=== PATIENT | male | born 1980 | race American Indian/Alaskan Native ===

== ENCOUNTER 2016-10-26 17:23 | Emergency (ER) | payer SELFPAY ==
[2016-10-26] MEDS ORDERED: AUGMENTIN 875 MG PO ONE (21:54)
[2016-10-26] MEDS ORDERED: RABAVERT RABIES VACCINE(PCEC) IM ONE (21:54)
[2016-10-26] MEDS ORDERED: BOOSTRIX IM ONE (21:54)
--- NOTE | 2016-10-26 22:08 | Emergency Department Report ---
HPI - General Chief Complaint: Animal Bite Time Seen by Provider: 10/26/16 21:12 - HPI HPI: 36-year-old male presents to ED complaining of dog bite to the right hand. Patient states the bite happened yesterday. Patient says he did not come in yesterday because he thought he would be alright but today he saw some minimal swelling on his right hand. Patient states he recently just acquired from a friend about a month ago. Patient's states he is unsure about the dog's vaccination but he is friend told him that the dog was vaccinated up until about 6 months. Patient denies fevers/chills/nausea/vomiting/abdominal pain/chest pain/ shortness of breath or problem ED Past Medical Hx - Past Medical History Previous Medical History?: No - Surgical History Past Surgical History?: No - Social History Smoking Status: Current Every Day Smoker Substance Use Type: Alcohol - Medications Home Medications: Home Medications Medication Instructions Recorded Confirmed Last Taken Type Amoxicillin/K Clav Tab [Augmentin 1 each PO BID #12 tablet 10/26/16 Unknown Rx 875MG TAB] Ibuprofen [Motrin] 800 mg PO Q8HR PRN #30 tablet 10/26/16 Unknown Rx Rabies Vaccine (Pcec)/Pf [Rabavert 2.5 unit IM .ONCE #1 unit 10/26/16 Unknown Rx Rabies Vaccine(Pcec)] ED Review of Systems ROS: Stated complaint: DOG BITE Other details as noted in HPI Constitutional: denies: chills, fever Eyes: denies: eye pain, eye discharge, vision change ENT: denies: ear pain, throat pain Respiratory: denies: cough, shortness of breath, wheezing Cardiovascular: denies: chest pain, palpitations Endocrine: no symptoms reported Gastrointestinal: denies: abdominal pain, nausea, diarrhea Genitourinary: denies: urgency, dysuria Musculoskeletal: denies: back pain, joint swelling, arthralgia Skin: denies: rash, lesions, change in color, pruritus Neurological: denies: headache, weakness, paresthesias Psychiatric: denies: anxiety, depression Hematological/Lymphatic: denies: easy bleeding, easy bruising Physical Exam - Physical Exam Vital Signs: Vital Signs 10/26/16 17:52 Temperature 98.8 F Pulse Rate 88 Respiratory 16 Rate Blood Pressure 153/98 O2 Sat by Pulse 100 Oximetry Physical Exam: GENERAL: Alert and oriented x3, no apparent distress, Normal Gait, atraumatic. HEAD: Head is normocephalic and a-traumatic. EYES: Extra ocular muscles are intact. Pupils are equal, round, and reactive to light and accommodation. MOUTH:Mouth is well hydrated and without lesion. Patent airways. NECK: Supple. Non edematous, No carotid bruits. No lymphadenopathy or thyromegaly. No C-spine tenderness LUNGS: Symetrical with respiration, No wheezing, no rales or crackles, CTAB. HEART: S1, S2 present, regular rate and rhythm without murmur, no rubs, no gallops EXTREMITIES/MUSCULOSKELETAL: No cyanosis, clubbing, rash, lesions or edema. Full ROM bilaterally. UE/LE Pulses 2+ bilaterally. LE and UE 5+ strength bilaterally, straight leg raise negative bilaterally NEUROLOGIC: No focal Deficit, Cranial nerves II through XII are grossly intact. No loss of sensation, SKIN: Warm and dry, 3 bite bonds located on left hand one located on on upper arm. Wound is closed, non-bloody, mild erythematous on the right and posterior hand No lesions, No ulceration or induration present. ED Course Vital Signs 10/26/16 17:52 Temperature 98.8 F Pulse Rate 88 Respiratory 16 Rate Blood Pressure 153/98 O2 Sat by Pulse 100 Oximetry ED Medical Decision Making - Medical Decision Making 36-year-old male presents with a dog bite to the hand and on. ED course: Patient received a dose of Augmentin and tetanus booster. Patient unable to receive his rabies vaccination due to pharmacy out of stock of the rabies vaccination. Discussed the patient that I will be given him rabies prescription to go to another pharmacy to pick it up and return to the ED or any other clinic to have it administered. Discussed safe unable to get prescription from the pharmacy to go to the local health department as referred to get vaccinated. Patient states he understands instructions given. Patient is in no acute or respiratory distress. Patient's vital signs are normal. Discussed follow-up with primary care physician 3-5 days Critical care attestation.: If time is entered above; I have spent that time in minutes in the direct care of this critically ill patient, excluding procedure time. ED Disposition Clinical Impression: Animal bite of forearm Qualifiers: Encounter type: initial encounter Laterality: right Qualified Code(s): S51.851A - Open bite of right forearm, initial encounter Dog bite Qualifiers: Encounter type: initial encounter Qualified Code(s): W54.0XXA - Bitten by dog, initial encounter Disposition: DISCHARGED TO HOME OR SELFCARE Is pt being admited?: No Does the pt Need Aspirin: No Condition: Stable Instructions: Animal Bite (ED) Additional Instructions: Go and slate picker your rabies vaccine from the pharmacy and return to ED to get it administered or return to her primary care physician to have it administered Following instructions as given If new symptoms arise or symptoms get worse return to the nearest ED Prescriptions: Amoxicillin/K Clav Tab [Augmentin 875MG TAB] 1 each PO BID #12 tablet Ibuprofen [Motrin] 800 mg PO Q8HR PRN #30 tablet PRN Reason: Pain Rabies Vaccine (Pcec)/Pf [Rabavert Rabies Vaccine(Pcec)] 2.5 unit IM .ONCE #1 unit Referrals: PRIMARY CAREMD [Primary Care Provider] - 3-5 Days JOSSELYN PARIKH MD [Referring] - 3-5 Days [facility] [Outside] - 3-5 Days [facility] [Outside] - 3-5 Days [facility] [Outside] - 3-[address] [facility] [Outside] - 3-5 Days Forms: Work/School Release Form(ED) Time of Disposition: 22:27
[2016-10-26 22:55] VITALS: BP 132/78
== END 2016-10-26 23:09 | disposition home or self-care (01) ==
LOC: ED 17:23
DX: S51.851A Open bite of right forearm, initial encounter (principal); F17.200 Nicotine dependence, unspecified, uncomplicated; W54.0XXA Bitten by dog, initial encounter; Y93.89 Activity, other specified; Y99.9 Unspecified external cause status; Y92.89 Other specified places as the place of occurrence of the external cause
CPT/HCPCS: 90471; 90715

== ENCOUNTER 2018-01-25 22:20 | Emergency (ER) | payer OTHER ==
[2018-01-25] MEDS ORDERED: NORCO 5/325 PO ONE (23:11)
--- NOTE | 2018-01-25 23:33 | XRay Report ---
FINAL REPORT EXAM: XR HAND 3+V RT HISTORY: "cut rt. hand on glass" TECHNIQUE: Four views right hand PRIORS: None. FINDINGS: No fracture is identified. No dislocation seen. Joint spaces are within normal limits. No erosive bony change identified. Carpal bones maintain normal alignment. Distal radius and ulna are intact. No radiopaque foreign bodies seen. IMPRESSION: Negative hand series
[2018-01-26] MEDS ORDERED: XYLOCAINE 1% 20 mL INFILTRATI ONE (01:21)
[2018-01-26] MEDS ORDERED: MOTRIN PO ONE ×2 (01:22→01:23)
[2018-01-26] MEDS ORDERED: BOOSTRIX IM ONE (01:23)
--- NOTE | 2018-01-26 03:25 | Emergency Department Report ---
ED Laceration HPI - HPI Chief Complaint: Wound/Laceration Stated Complaint: LAC TO RT HAND Time Seen by Provider: 01/26/18 03:16 Occurred When: Yesterday (evening) Severity: moderate Tetanus Status: Not up to Date Laceration Symptoms: Yes Pain, No Foreign Body Sensation, No Numbness, No Weakness Other History: History 7-year-old -[place] male reports that he cut his hand on glass around 5 PM Wednesday night while washing dishes. Patient reports he was bandaged and Neosporin applied by patient prior to arrival. Patient gets to the triage room there is no active bleeding noted through the bandage. Patient reports he is not up-to-date on his tetanus shot. Patient denies any other medical problems at this time. ED Review of Systems ROS: Stated complaint: LAC TO RT HAND Other details as noted in HPI Comment: All other systems reviewed and negative Musculoskeletal: denies: back pain, joint swelling, arthralgia Skin: other (cut to right hand lateral) ED Past Medical Hx - Past Medical History Previous Medical History?: No - Surgical History Past Surgical History?: No - Social History Smoking Status: Current Every Day Smoker Substance Use Type: None - Medications Home Medications: Home Medications Medication Instructions Recorded Confirmed Last Taken Type Rabies Vaccine (Pcec)/Pf [Rabavert 2.5 unit IM .ONCE #1 unit 10/26/16 Unknown Rx Rabies Vaccine(Pcec)] Amoxicillin/K Clav Tab [Augmentin 1 each PO BID #14 tablet 01/26/18 Unknown Rx 875MG TAB] Ibuprofen [Motrin 800 MG tab] 800 mg PO Q8HR PRN #30 tablet 01/26/18 Unknown Rx Laceration Physical Exam - Exam General: Vital signs noted. No distress. Alert and acting appropriately. Wound Length (cm): 2 (linear laceration to the right hand lateral) Laceration Location: Upper Extremity (right hand lateral) Laceration Exam: Yes Normal Distal CMS, No Foreign Body, No Exposed Tendon, Vessel, or Nerve, No Tendon Injury ED Course Vital Signs 01/25/18 01/25/18 23:03 23:14 Temperature 98.7 F Pulse Rate 96 H Respiratory 18 18 Rate Blood Pressure 190/97 O2 Sat by Pulse 98 Oximetry - Laceration /Wound Repair Upper Hand Wound Location: upper extremity (right hand) Wound Length (cm): 2 Wound's Depth, Shape: into muscle, linear Wound Explored: clean Irrigated w/ Saline (ccs): 500 Betadine Prep?: Yes Anesthesia: 1% Lidocaine Volume Anesthetic (ccs): 3 Wound Debrided: minimal Wound Repaired With: sutures Suture Size/Type: 4:0, proline Number of Sutures: 3 Layer Closure?: No Sterile Dressing Applied?: Yes Progress: Patient tolerated procedure well ED Medical Decision Making - Medical Decision Making Patient has been evaluated by this provider fast track. Pain medication was given for pain control. Laceration repair. Discharge patient on ibuprofen. Patient to return in 7-10 days for suture removal. Discussed the patient to keep area clean and dry. Critical care attestation.: If time is entered above; I have spent that time in minutes in the direct care of this critically ill patient, excluding procedure time. ED Disposition Clinical Impression: Laceration of hand Qualifiers: Encounter type: initial encounter Foreign body presence: with foreign body Laterality: right Qualified Code(s): S61.421A - Laceration with foreign body of right hand, initial encounter Disposition: TO HOME OR SELFCARE Is pt being admited?: No Does the pt Need Aspirin: No Condition: Stable Instructions: Suture Care (ED), Laceration (ED) Additional Instructions: Please complete antibiotics as prescribed. Please return back to the emergency room for suture removal in 7-10 days. Please keep the area clean and dry. Please wear a glove while cooking washing dishes. Prescriptions: Amoxicillin/K Clav Tab [Augmentin 875MG TAB] 1 each PO BID #14 tablet Ibuprofen [Motrin 800 MG tab] 800 mg PO Q8HR PRN #30 tablet PRN Reason: Pain Referrals: PRIMARY CARE, [Primary Care Provider] - 3-5 Days Forms: Work/School Release Form(ED)
[2018-01-26 03:40] VITALS: BP 125/86
== END 2018-01-26 03:35 | disposition home or self-care (01) ==
LOC: ED 22:20
DX: S61.411A Laceration without foreign body of right hand, initial encounter (principal); F17.200 Nicotine dependence, unspecified, uncomplicated; W25.XXXA Contact with sharp glass, initial encounter; Y93.89 Activity, other specified; Y92.89 Other specified places as the place of occurrence of the external cause; Y99.8 Other external cause status
CPT/HCPCS: 90471; 90715; 99283

== ENCOUNTER 2018-02-01 12:33 | Emergency (ER) | payer SELFPAY ==
[2018-02-01 12:44] VITALS: BP 137/102
--- NOTE | 2018-02-01 15:21 | Emergency Department Report ---
ED Recheck HPI - General Chief Complaint: Laceration/Recheck/Suture Stated Complaint: STITCHS CAME OUT Time Seen by Provider: 02/01/18 15:16 Source: patient, family Mode of arrival: Ambulatory Limitations: No Limitations - History of Present Illness Complaint: suture/staple removal Onset/Timin -: days(s) Initial Visit For: laceration Returns Today for: staple/Stitch removal Symptoms Since Prior Visit: no new symptoms Context: planned re-check Treatments Prior to Arrival: Given Pain Meds on - Related Data Previous Rx's Medication Instructions Recorded Last Taken Type Rabies Vaccine (Pcec)/Pf [Rabavert 2.5 unit IM .ONCE #1 unit 10/26/16 Unknown Rx Rabies Vaccine(Pcec)] Amoxicillin/K Clav Tab [Augmentin 1 each PO BID #14 tablet 01/26/18 Unknown Rx 875MG TAB] Ibuprofen [Motrin 800 MG tab] 800 mg PO Q8HR PRN #30 tablet 01/26/18 Unknown Rx Allergies Allergy/AdvReac Type Severity Reaction Status Date / Time No Known Allergies Allergy Verified 10/26/16 17:55 ED Review of Systems ROS: Stated complaint: STITCHS CAME OUT Other details as noted in HPI Constitutional: denies: chills, fever ENT: denies: ear pain, throat pain Respiratory: denies: cough, orthopnea, shortness of breath, SOB with exertion, SOB at rest, stridor, wheezing Cardiovascular: denies: chest pain, palpitations, edema, syncope Gastrointestinal: denies: nausea, vomiting Musculoskeletal: denies: back pain, joint swelling, arthralgia Skin: other (laceration was sutures to right hand) Neurological: denies: numbness, paresthesias ED Past Medical Hx - Past Medical History Previous Medical History?: No - Surgical History Past Surgical History?: No - Family History Family history: hypertension - Social History Smoking Status: Current Every Day Smoker Substance Use Type: None - Medications Home Medications: Home Medications Medication Instructions Recorded Confirmed Last Taken Type Rabies Vaccine (Pcec)/Pf [Rabavert 2.5 unit IM .ONCE #1 unit 10/26/16 Unknown Rx Rabies Vaccine(Pcec)] Amoxicillin/K Clav Tab [Augmentin 1 each PO BID #14 tablet 01/26/18 Unknown Rx 875MG TAB] Ibuprofen [Motrin 800 MG tab] 800 mg PO Q8HR PRN #30 tablet 01/26/18 Unknown Rx ED Physical Exam - General Limitations: No Limitations General appearance: alert, in no apparent distress - Head Head exam: Present: atraumatic, normocephalic, normal inspection - Eye Eye exam: Present: normal appearance, PERRL, EOMI - ENT ENT exam: Present: normal exam, normal orophraynx, mucous membranes moist - Neck Neck exam: Present: normal inspection, full ROM. Absent: tenderness, lymphadenopathy - Respiratory Respiratory exam: Present: normal lung sounds bilaterally. Absent: respiratory distress, chest wall tenderness - Cardiovascular Cardiovascular Exam: Present: regular rate, normal rhythm, normal heart sounds - Extremities Exam Extremities exam: Present: normal inspection, full ROM, normal capillary refill. Absent: tenderness, pedal edema, joint swelling - Neurological Exam Neurological exam: Present: alert, oriented X3, normal gait - Psychiatric Psychiatric exam: Present: normal affect, normal mood - Skin Skin exam: Present: warm, dry, intact, normal color, other (patient with laceration to his metacarpal bone area with 2 stitches. Wound edges well approximated. He reports that some of the stitches came out) ED Course Vital Signs 02/01/18 12:41 Temperature 98.4 F Pulse Rate 67 Respiratory 18 Rate Blood Pressure 137/102 O2 Sat by Pulse 100 Oximetry - Reevaluation(s) Reevaluation #1: 02/01/18 15:19 Sutures removed from laceration site. Patient tolerated well. Wound edges well approximated. ED Recheck MDM - Medical Decision Making This is a 37-year-old patient here to have sutures removed from left hand fifth metacarpal bone area. He is stable and in no acute distress. Patient had already taken of some of his sutures. #2 sutures taken from the laceration. Laceration without infection. I discussed the patient if he develops any redness, drainage, fever and/or chills to return to the emergency room otherwise follow-up with his primary care when necessary. He is stable in no acute distress and discharge from emergency room in stable condition Critical care attestation.: If time is entered above; I have spent that time in minutes in the direct care of this critically ill patient, excluding procedure time. ED Disposition Clinical Impression: Encounter for removal of sutures Disposition: DC-01 TO HOME OR SELFCARE Is pt being admited?: No Does the pt Need Aspirin: No Condition: Stable Instructions: Suture Removal (ED) Additional Instructions: Keep affected area clean and dry Referrals: PRIMARY CARE,MD [Primary Care Provider] - 2-3 Days Forms: Accompanied Note, Work/School Release Form(ED)
== END 2018-02-01 15:29 | disposition home or self-care (01) ==
LOC: ED 12:33
DX: S61.217D Laceration without foreign body of left little finger without damage to nail, subsequent encounter (principal); F17.200 Nicotine dependence, unspecified, uncomplicated; X58.XXXD Exposure to other specified factors, subsequent encounter

== ENCOUNTER 2020-05-06 19:26 | Emergency (ER) | payer SELFPAY ==
--- NOTE | 2020-05-06 19:39 | Event Note ---
ED Screening Note Date of service: 05/06/20 Time: 19:38 ED Screening Note: Pt c/o left sided chest pain x 1 month, worsening x today denies past medical hx or SOB describes pain as throbbing This initial assessment/diagnostic orders/clinical plan/treatment(s) is/are subject to change based on patients health status, clinical progression and re- assessment by fellow clinical providers in the ED. Further treatment and workup at subsequent clinical providers discretion. Patient/guardian urged not to elope from the ED as their condition may be serious if not clinically assessed and managed. Initial orders include: labs ekg CXR
[2020-05-06 19:44] VITALS: BP 159/107
[2020-05-06 19:51] LABS: Basophils % (Auto) 0.5 % (0.0-1.8); Eosinophils # (Auto) 0.1 K/mm3 (0.0-0.4); Eosinophils % (Auto) 0.9 % (0.0-4.3); Hemoglobin 13.9 gm/dl (11.8-15.2); Lymphocytes # (Auto) 2.2 K/mm3 (1.2-5.4); Lymphocytes % (Auto) 40.3 % (13.4-35.0); Mean Corpuscular HGB Conc 34 % (32-34); Mean Corpuscular Volume 87 fl (84-94); Monocytes # (Auto) 0.5 K/mm3 (0.0-0.8); Monocytes % (Auto) 9.9 % (0.0-7.3); Platelet Count 356 K/mm3 (140-440); Red Blood Count 4.73 M/mm3 (3.65-5.03); Red Cell Distribution Width 14.4 % (13.2-15.2)
--- NOTE | 2020-05-06 21:12 | XRay Report ---
CHEST 2 VIEWS 2021 INDICATION / CLINICAL INFORMATION: chest pain COMPARISON: None available. FINDINGS: SUPPORT DEVICES: None. HEART / MEDIASTINUM: No significant abnormality. LUNGS / PLEURA: No significant pulmonary or pleural abnormality. No pneumothorax. ADDITIONAL FINDINGS: No significant additional findings. IMPRESSION: No significant acute abnormality Signer Name: Alfred Cuevas MD Signed: 05/06/2020 9:08 PM Workstation Name: [id number]
== END 2020-05-06 23:15 | disposition left against medical advice (07) ==
LOC: ED 19:26
DX: R07.89 Other chest pain (principal); Z53.21 Procedure and treatment not carried out due to patient leaving prior to being seen by health care provider
CPT/HCPCS: 36415; 71046; 84484; 85025; 93005